=== PATIENT | female | born 1975 | race Caucasian/White ===

== ENCOUNTER → 2021-10-21 13:27 | Outpatient (CLI) | payer OTHER, SELFPAY ==
--- NOTE | 2021-10-21 | DI.US.S_ITS ---
PROCEDURE: US PELVIC COMPLETE INDICATIONS: Abnormal uterine and vaginal bleeding, unspecified TECHNIQUE: Real-time scanning was performed of the pelvic organs, with image documentation. Additional endovaginal scanning was necessary due to incomplete visualization of the adnexal and endometrial structures by transabdominal scanning. COMPARISON: None. FINDINGS: Uterus: Uterus is anteverted and normal in size at 9.7 x 3.7 x 5.3 cm. The myometrium is homogeneous. The endometrium measures 5.5 mm combined thickness. Ovaries: The right ovary measures 3.9 x 2.4 x 2.9 cm, with a calculated ovarian volume of 14 cc. The left ovary measures 3.1 x 1.8 x 2.6 cm, with a calculated ovarian volume of 7.6 cc. The ovaries have a normal sonographic appearance. Less than 12 follicles can be seen in each ovary. No adnexal masses are seen. Multiple small right follicular cyst. Other: No pathologic free abdominal or pelvic fluid. IMPRESSION: No source for menorrhagia identified. We strive to produce accurate, complete, and clear reports of imaging services. To assist us in improving patient care, this report was composed using standard report templates and voice recognition software. Therefore, it may contain abnormal punctuation, insertions and/or omissions. Occasional wrong-word or sound-alike substitutions may occur. Though we review the report and make efforts to correct it, we do recommend that the report be read carefully in proper context to recognize any text inaccuracies. Dictated by: Og PINO Interpreted: Luz Maria Bowling MD on 10/21/2021 at 14:51 Transcribed by: [email or web address] on 10/21/2021 at 14:53 Approved by: Luz Maria Bowling M.D. on 10/21/2021 at 15:27
== END ==
PROVIDERS: PCP Nurse Practitioner Family; Referring Provider Nurse Practitioner Family; Visit Provider Nurse Practitioner Family
DX: N93.9 Abnormal uterine and vaginal bleeding, unspecified (principal)
CPT/HCPCS: 76856